=== PATIENT | female | born 1940 | race Caucasian/White ===

== ENCOUNTER 2018-06-21 08:55 | Outpatient (CLI) | payer OTHER ==
[2018-06-21] MEDS ORDERED: IOHEXOL 100 ML IV ONE (09:29)
[2018-06-21] MEDS ORDERED: DIATR MEGLU/DIATRIZ SOD 30 ML SOLUTION PO ONE (09:29)
== END 2018-06-21 21:15 | disposition home or self-care (01) ==
LOC: SCT 08:55
DX: K57.90 Diverticulosis of intestine, part unspecified, without perforation or abscess without bleeding (principal); M41.80 Other forms of scoliosis, site unspecified; R63.4 Abnormal weight loss
CPT/HCPCS: 74177; Q9964; Q9967

== ENCOUNTER 2021-06-22 08:57 | Emergency (ER) | payer OTHER ==
[~2021-06-22] VITALS: Ht 157.5 cm; Wt 57.2 kg
--- NOTE | 2021-06-22 09:00 | NUR ---
Placed in room 1 . Placed on media monitor, blood pressure machine and pulse oximeter. To gown for exam. Side rails up.
--- NOTE | 2021-06-22 09:05 | NUR ---
Pt walked in to ER with c/o laceration to back of head s/p mechanical fall in the shower this morning. Denies LOC or any other trauma at this time. V/S stable, no acute distress noted.
--- NOTE | 2021-06-22 09:10 | NUR ---
ER Dr. Stallings at bedside examining patient.
--- NOTE | 2021-06-22 09:30 | NUR ---
Patient has an approx 2.5 cm laceration to back of head. Dr. Stallings applied néstor using sterile technique. Edges well approximated. Site cleansed with Betadine and NS. Dressing of non-stick gauze and cobain wrap applied to site. No bleeding noted. Pt tolerated well.
[2021-06-22 09:45] VITALS: BP_SYST 181
[2021-06-22] MEDS ORDERED: LIDOCAINE/EPI 1% 1:100000 20 ML VIAL INJ ONE (10:00)
[2021-06-22] MEDS ORDERED: ACETAMINOPHEN 500 MG TABLET PO ONE (10:00)
[2021-06-22] MEDS ORDERED: BACI15OI13 TP ×2 (10:19)
[2021-06-22] MEDS ORDERED: ACET-2634 PO (10:19)
[2021-06-22] MEDS ORDERED: BACITRACIN 1 GM OINT TP ONE (11:15)
--- NOTE | 2021-06-22 11:25 | NUR ---
Patient given written and verbal discharge instructions and verbalizes understanding. ER MD discussed with patient the results and treatment provided. Patient in stable condition. ID arm band removed. Rx of tylenol and bacitracin given. Patient educated on pain management and to follow up with PMD. Pain Scale 0. Opportunity for questions provided and answered. Medication side effect fact sheet provided.
== END 2021-06-22 11:25 | disposition home or self-care (01) ==
LOC: SED 08:57
DX: S01.01XA Laceration without foreign body of scalp, initial encounter (principal); S09.90XA Unspecified injury of head, initial encounter; I10 Essential (primary) hypertension; E11.9 Type 2 diabetes mellitus without complications; Z79.899 Other long term (current) drug therapy; W01.10XA Fall on same level from slipping, tripping and stumbling with subsequent striking against unspecified object, initial encounter; Y93.89 Activity, other specified; Y92.89 Other specified places as the place of occurrence of the external cause; Y99.8 Other external cause status
CPT/HCPCS: 70450-TC; 72125-TC; 76376; 99285

== ENCOUNTER 2023-02-01 18:03 | Emergency (ER) | payer OTHER ==
[~2023-02-01] VITALS: Ht 157.5 cm; Wt 55.3 kg
[~2023-02-01 18:03] MED LIST: ACET-2634 PO
[2023-02-01 18:23] VITALS: BP_SYST 172
--- NOTE | 2023-02-01 18:27 | NUR ---
Patient to ER bed 01 to gown for evaluation. Side rails up. Report given to BLANCA PETER
--- NOTE | 2023-02-01 18:35 | NUR ---
RECEIVED PT FROM BLANCA LEE. PT BIB [facility] WITH C/O FALLING OVER A CERTIFIED [employer]CIAL [employer] IN HER HARD AND HITTING HER RIGHT SIDE OF FOREHEAD, SITE IS SWOLLEN, RED WITH LACERATION. EMT AT BEDSIDE RINSING SITE. PT IS AAOX4, PERRL, ON R/A, NORMAL S1S2 NOTED. DENIES N/V/D/C. DISTAL PULSES NORMAL, SKIN WARM, NO PERIPHERAL PULSES NORMAL.
--- NOTE | 2023-02-01 18:40 | NUR ---
DR. CONCEPCION AT BEDSIDE TO ASSESS PT.
[2023-02-01] MEDS ORDERED: ACETAMINOPHEN 325 MG TABLET PO ONE (19:00)
--- NOTE | 2023-02-01 19:00 | NUR ---
TYLENOL 1000MG PO GIVEN FOR H/A 02/23.
--- NOTE | 2023-02-01 19:01 | NUR ---
PT TAKEN FOR CT SCAN.
[2023-02-01] MEDS ORDERED: LIDOCAINE/EPI 1% 1:100000 20 ML VIAL INJ ONE (19:30)
--- NOTE | 2023-02-01 19:30 | NUR ---
PT ENDORSED TO BLANCA LO. ALL QUESTIONS AND CONCERNS ADDRESSED.
--- NOTE | 2023-02-01 20:55 | NUR ---
pt ambulated to bathroom with steady gait . pt a/o x 4. will go over discharge paperwork
--- NOTE | 2023-02-01 21:07 | NUR ---
pt called son to pick her up.
[2023-02-01 21:09] VITALS: BP_SYST 135
== END 2023-02-01 21:09 | disposition home or self-care (01) ==
LOC: SED 18:03
DX: S01.81XA Laceration without foreign body of other part of head, initial encounter (principal); E11.9 Type 2 diabetes mellitus without complications; I10 Essential (primary) hypertension; Z88.1 Allergy status to other antibiotic agents; Z79.899 Other long term (current) drug therapy; W01.0XXA Fall on same level from slipping, tripping and stumbling without subsequent striking against object, initial encounter; Y93.89 Activity, other specified; Y92.89 Other specified places as the place of occurrence of the external cause; Y99.8 Other external cause status
CPT/HCPCS: 70450-TC; 76376; 99284